=== PATIENT | male | born 1955 | race Caucasian/White ===

== ENCOUNTER 2020-09-28 15:19 | Emergency (ER) | payer BC ==
[~2020-09-28] VITALS: Ht 182.9 cm; Wt 81.6 kg
--- NOTE | 2020-09-28 15:56 | NUR ---
Patient awake alert denies numdness to arms and legs ,no facila drooping no slurred speech swallow eval passed
[2020-09-28] MEDS ORDERED: IV NS 0.9% 1,000 ML BAG IV ONE (16:00)
[2020-09-28] MEDS ORDERED: KETOROLAC TROMETHAMINE INJ 30 MG/ML VIAL IV ONE (16:00)
[2020-09-28] MEDS ORDERED: SUMATRIPTAN SUCCINATE 6 MG/0.5 ML VIAL SQ ONE ×2 (16:00→16:04)
[2020-09-28] MEDS ORDERED: ONDANSETRON HCL/PF 4 MG/2 ML VIAL IVP ONE (16:00)
[2020-09-28] MEDS ORDERED: METOCLOPRAMIDE HCL 10 MG/2 ML VIAL IV ONE (16:00)
[2020-09-28] MEDS ORDERED: METOCLOPRAMIDE HCL 10 MG/2 ML VIAL ONE (16:04)
[2020-09-28] MEDS ORDERED: KETOROLAC TROMETHAMINE 15 MG/ML VIAL ONE (16:04)
[2020-09-28 16:25] LABS: BASOPHILS # (AUTO) 0.1 /CMM (0.0-0.2); BASOPHILS % (AUTO) 0.8 % (0.0-2.0); HEMATOCRIT 44 % (39-51); HEMOGLOBIN 14.6 g/dL (13.5-17.5); LYMPHOCYTES # (AUTO) 1.9 /CMM (0.8-4.8); LYMPHOCYTES % (AUTO) 29.3 % (20.0-44.0); MEAN CORPUSCULAR HGB CONC 33 g/dl (31.0-36.0); MEAN CORPUSCULAR VOLUME 89 fL (80-96); MONOCYTES # (AUTO) 0.6 /CMM (0.1-1.30); NEUTROPHILS % (AUTO) 59.9 % (43.0-81.0); PLATELET COUNT (AUTO) 278 /CMM (150-450); RED BLOOD CELL COUNT(AUTO) 4.92 MIL/uL (4.5-6.0); WHITE BLOOD COUNT (AUTO) 6.6 K/uL (4.3-11.0)
--- NOTE | 2020-09-28 16:28 | NUR ---
TO ct .,lab draw obtained and send to lab .
[2020-09-28 16:37] LABS: CALCIUM, SERUM 9.4 mg/dL (8.5-10.1); CREATININE 0.9 mg/dL (0.6-1.3); POTASSIUM 4.3 mmol/L (3.5-5.1)
--- NOTE | 2020-09-28 17:03 | NUR ---
TEXTED DR. BRIGHT
[2020-09-28] MEDS ORDERED: LEVETIRACETAM (500MG) 500 MG in IV NS 0.9% 100 ML IV SCH (17:30)
--- NOTE | 2020-09-28 17:59 | NUR ---
Patient aware of transfer patient 08/13 nbo nausea and vomiting .
--- NOTE | 2020-09-28 18:04 | NUR ---
Patient awake alert denies sob or numbness good bilateral hand grasp and good pedal pushes noted able to ambulated to bathroom patient aware of transfer .
--- NOTE | 2020-09-28 18:08 | NUR ---
Patient GCS 15 awake alert noted Left pupil 3mm reacted to light and right pupil 2mm reacted to light pain level 5/10 headache
--- NOTE | 2020-09-28 18:24 | NUR ---
covid swab done and sent to the lab
--- NOTE | 2020-09-28 19:17 | NUR ---
LAB CALLED PT COVID RESULT NEGATIVE (-)
--- NOTE | 2020-09-28 19:17 | NUR ---
Report given to Carolyne SCHULZ .awaiting for bed
--- NOTE | 2020-09-28 19:25 | NUR ---
TOOK OVER PT CARE. PT AAOX4. NO NEURO DEFICIT. AWARE OF PLAN OF CARE.
--- NOTE | 2020-09-28 20:25 | NUR ---
TRANSFER INFORMATION: PT ACCEPTED AT [facility] ACCEPTING MD URBINA PHONE# FOR REPORT EXT [phone]
--- NOTE | 2020-09-28 20:33 | NUR ---
[facility] ETA 1 HOUR
--- NOTE | 2020-09-28 21:11 | NUR ---
REPORT GIVEN TO DANIELLE SCHULZ FOR EDUARD
[2020-09-28 21:44] VITALS: BP 148/93
--- NOTE | 2020-09-28 22:07 | NUR ---
[facility] FOR [facility]SP[facility].
--- NOTE | 2020-09-28 22:15 | NUR ---
REPORT GIVEN TO [facility] EMT AND RN. PT TRANSFERED.
== END 2020-09-28 22:20 | disposition short-term general hospital (02) ==
LOC: ER 15:27
DX: I62.01 Nontraumatic acute subdural hemorrhage (principal); R51.9 Headache, unspecified; Z20.822 Contact with and (suspected) exposure to COVID-19
CPT/HCPCS: 36415; 70450; 80048; 85025; 87426; 96365; 96372; 96375; 99291; 99292; C9803; J1885; J1953; J2765; J3030; J7030 ×2

== ENCOUNTER 2020-10-22 10:44 | Inpatient (IN) | payer BC ==
[~2020-10-22] VITALS: Ht 182.9 cm; Wt 77.1 kg
--- NOTE | 2020-10-22 10:50 | NUR ---
bib friend, pt is c/o dizziness started 1 hour ago. Patient a/ox3, breathing even and unlabored, verbally responsive, answer questions with delayed response. Patient noted to be tachycardic on the monitor.
[2020-10-22] MEDS ORDERED: DIAZEPAM 5 MG TABLET ONE (10:56)
[2020-10-22] MEDS ORDERED: MECLIZINE HCL 12.5 MG TABLET ONE (10:59)
[2020-10-22] MEDS ORDERED: MECLIZINE HCL 12.5 MG TABLET PO ONE (11:00)
[2020-10-22] MEDS ORDERED: IV NS 0.9% 500 ML BAG IV ONE ×2 (11:00→12:00)
[2020-10-22] MEDS ORDERED: AMLO-213 PO (11:13)
[2020-10-22] MEDS ORDERED: LEVE500T20 PO (11:13)
[2020-10-22] MEDS ORDERED: ATOR40TA PO (11:13)
[2020-10-22] MEDS ORDERED: HYDR-4076 PO (11:13)
[2020-10-22] MEDS ORDERED: DOCU100C36 PO (11:13)
[2020-10-22 11:23] LABS: BASOPHILS # (AUTO) 0.1 /CMM (0.0-0.2); BASOPHILS % (AUTO) 0.8 % (0.0-2.0); EOSINOPHILS % (AUTO) 1.1 % (0.0-6.0); HEMATOCRIT 46 % (39-51); HEMOGLOBIN 14.7 g/dL (13.5-17.5); LYMPHOCYTES # (AUTO) 4.7 /CMM (0.8-4.8); LYMPHOCYTES % (AUTO) 42.3 % (20.0-44.0); MEAN CORPUSCULAR HGB CONC 32 g/dl (31.0-36.0); MEAN CORPUSCULAR VOLUME 91 fL (80-96); MONOCYTES # (AUTO) 0.9 /CMM (0.1-1.30); MONOCYTES % (AUTO) 7.9 % (2.0-12.0); NEUTROPHILS # (AUTO) 5.3 /CMM (1.8-8.9); NEUTROPHILS % (AUTO) 47.9 % (43.0-81.0); PLATELET COUNT (AUTO) 412 /CMM (150-450); RED BLOOD CELL COUNT(AUTO) 5.04 MIL/uL (4.5-6.0); WHITE BLOOD COUNT (AUTO) 11.1 K/uL (4.3-11.0)
--- NOTE | 2020-10-22 11:23 | NUR ---
DR. BUTLER GAVE VERBAL ORDER FOR VALIUM. REMOVED VALIUM FROM OMNICELL, THEN DR. BUTLER GAVE INSTRUCTION TO HOLD THE VALIUM AT THIS TIME.
[2020-10-22 11:31] LABS: CALCIUM, SERUM 9.9 mg/dL (8.5-10.1); CARBON DIOXIDE 14 mmol/L (21-32); CHLORIDE 100 mmol/L (98-107); CREATININE 1.4 mg/dL (0.6-1.3); GLUCOSE 170 mg/dL (74-106); POTASSIUM 3.1 mmol/L (3.5-5.1); SODIUM SERUM 141 mmol/L (136-145); UREA NITROGEN, BLOOD 15 mg/dL (7-18)
--- NOTE | 2020-10-22 11:36 | NUR ---
COVID SWAB SENT.
[2020-10-22 11:37] LABS: ALANINE AMINOTRANSFERASE 27 U/L (12-78); ALBUMIN 4.3 g/dL (3.4-5.0); ALKALINE PHOSPHATASE 102 U/L (46-116); ASPARTATE AMINOTRANSFERASE 21 U/L (15-37); BILIRUBIN,DIRECT 0.3 mg/dL (0.0-0.2); BILIRUBIN,TOTAL 1.2 mg/dL (0.2-1.0); TOTAL PROTEIN, SERUM 9.1 g/dL (6.4-8.2)
[2020-10-22] MEDS ORDERED: LORAZEPAM INJ 2 MG/ML VIAL ONE (12:09)
--- NOTE | 2020-10-22 12:11 | NUR ---
PATIENT HAD AN EPISODE OF TONIC CLONIC SEIZURE X [address] BUTLER MADE AWARE. SEIZURE PRECAUTION OBSERVED.
[2020-10-22] MEDS ORDERED: LORAZEPAM INJ 2 MG/ML VIAL IV ONE (12:30)
[2020-10-22] MEDS ORDERED: LEVETIRACETAM (500MG) 1,000 MG in IV NS 0.9% 100 ML IV SCH (12:30)
--- NOTE | 2020-10-22 13:05 | NUR ---
BED ASSIGNED= 307-1
--- NOTE | 2020-10-22 13:09 | NUR ---
PATIENT ASLEEP AT THIS TIME. VSS. NO DISTRESS NOTED.
--- NOTE | 2020-10-22 13:26 | NUR ---
REPORT GIVEN TO MICHELL SCHULZ FOR EDUARD.
[2020-10-22] MEDS ORDERED: ZOLPIDEM TARTRATE 5 MG TABLET PO PRN (13:30)
[2020-10-22] MEDS ORDERED: MAG HYDROX/AL HYDROX/SIMETH 30 ML UDC PO PRN (13:30)
[2020-10-22] MEDS ORDERED: IV NS 0.9% 1,000 ML IV SCH (13:30)
[2020-10-22] MEDS ORDERED: HYDROCODONE/APAP 5/325MG TABLET PO PRN (13:30)
[2020-10-22] MEDS ORDERED: ONDANSETRON HCL/PF 4 MG/2 ML VIAL IVP PRN (13:30)
[2020-10-22] MEDS ORDERED: MAGNESIUM HYDROXIDE 30 ML UDC PO PRN (13:30)
[2020-10-22] MEDS ORDERED: Z GUARD REMEDY 2 OZ OINT TP PRN (13:30)
[2020-10-22] MEDS ORDERED: ACETAMINOPHEN 325 MG TABLET PO PRN (13:30)
[2020-10-22] MEDS ORDERED: hydrALAZINE HCL 25 MG TABLET PO PRN (13:30)
--- NOTE | 2020-10-22 13:45 | NUR ---
PATIENT ADMITTED FROM ER REPORTED BY LULÚ SCHULZ. ADMITTING DX IS SEIZURE, STABLE VITAL SIGN, SKIN IS WARM TO TOUCH, KEEP CLEAN/BRITTANY. CALL LIGHT WITHIN REACH, WILL CONTINUE TO MONITOR.
--- NOTE | 2020-10-22 13:51 | NUR ---
PATIENT TRANSFERRED TO ROOM 307-1 VIA ACLS PROTOCOL. NO DISTRESS NOTED. IN STABLE CONDITION, PATIENT IS MORE AWAKE. ENDORSED TO JENNY SCHULZ.
--- NOTE | 2020-10-22 15:00 | NUR ---
PATIENT NOTICED LACTIC ACID 5.1 AND POTASSIUM 3.1, INFORMED MD.
--- NOTE | 2020-10-22 15:00 | NUR ---
3 business trainer picked up patient, and given report. Patient medically stable condition.
[2020-10-22 16:00] VITALS: BP 133/79
[2020-10-22] MEDS ORDERED: DOCUSATE SODIUM 100 MG CAPSULE PO SCH (17:00)
--- NOTE | 2020-10-22 17:08 | NUR ---
PATIENT NOTED URINARY RETENTION 1,000 CC IN BLADDER AND OUT 1,000 CC APPROXIMATELY. PATIENT MENTIONED PATIENT USE COUDE CATHETER EVERY 6 HOURS AT HOME. PAGED BUT NO RESPONSE AT THIS TIME. LABORATORY CALLED REGARDING 2ND LACTIC ACID LEVEL IS 1.1, AND WILL CANCELL 3RD OF LACTIC ACID LAB. Addendum: 10/22/20 at 1726 by NOEMI ELAINE RN PAGED DR. HUERTA AND CALLED BACK. INFORMED OF PATIENT'S HISTORY OF SELF-CATHETERIZATION USING COUDE CATHETER AND BLADDER SCAN RESULT OF >999CC W/ RECOMMENDATION TO DO STRAIGHT CATHETERIZATION. PER MD, OKAY TO DO STRAIGHT CATHETERIZATION TO BE PERFORMED BY NURSE BUT OKAY FOR PATIENT TO DO IT WELL LONG PATIENT IS SUPERVISED. PATIENT ASSISTED W/ CATHETERIZATION IN THE BATHROOM USING FR 18 COUDE CATHETER W/ OUTPUT OF APPROXIMATELY 1000CC. PATIENT VERBALIZED BLADDER RELIEF AFTER PROCEDURE. NOTED W/ YELLOW-COLORED URINE OUTPUT.
--- NOTE | 2020-10-22 18:40 | NUR ---
RN CLOSING NOTE PATIENT IN BED RESTING, REMAINS AO X 3. SKIN IS WARM TO TOUCH, KEEP CLEAN/DRY, INTACT IV SITE, RUNNING NS AT 100 ML/HR CURRENTLY. RESPIRATORY EVEN AND UNLABORED ON ROOM AIR O2SAT 94%. KEPT ELEVATED HOB FOR ENSURE AIRWAY AND ASPIRATION PRECAUTION, ALSO LOWEST BED POSITION FOR SAFETY. CALL LIGHT WITHIN REACH, WILL ENDORSE STONE BELT SANDER.
--- NOTE | 2020-10-22 19:30 | NUR ---
DRAFTER CARTOGRAPHIC NOTES RECEIVED ON BED SLEEPING,AROUSABLE TO VERBAL STIMULI,BREATHING REGULAR,NOT IN ANY FORM OF DISTRESS,PRESENT IVF INFUSING WELL VIA IV PUMP ON RIGHT WRIST,SITE PATENT.SIDE RAILS PADDED FOR SEIZURE PRECAUTION.FALL PRECAUTION OBSERVED,BED ON LOWEST POSITION AND LOCKED,BED ALARM TRIGGERED.CALL LIGHT IN TREACH,NEEDS ANTICIPATED.
--- NOTE | 2020-10-22 19:30 | NUR ---
RN OPENING NOTES: RECEIVED RESIDENT SLEEP BED COMFORTABLY,AROUSABLE TO STIMULI, BED IN LOW POSITION, CALL LIGHTS WITHIN REACH, NO COMPLAIN OF PAIN AND DISCOMFORT, RESIDENT IS MONITORED FOR SEIZURE, NPO AT THIS TIME, ON TELE MONITORING WITH READING OF SINUS RTHYM HR AT 82,NO COMPLAIN OF PAIN AND DISCOMFORT AT THIS TIME WILL CONTINUE TO MONITOR.
[2020-10-22 20:00] VITALS: BP 130/77
[2020-10-22 20:17] VITALS: BP 130/77
--- NOTE | 2020-10-22 20:45 | NUR ---
SENIOR SALESFORCE DEVELOPER NOTES NOTED PATIENT ON NPO STATUS,WITH KEPPRA 500MG PO Q 12,HOSPITALIST MARLYS HAMILTON MADE AWARE,WITH ORDER TO CHANGE IT TO IV 500MG IV Q 12,NOTED AND CARRIED OUT.
[2020-10-22] MEDS ORDERED: LEVETIRACETAM (250 MG) 250 MG TABLET PO SCH (21:00)
[2020-10-22] MEDS ORDERED: LEVETIRACETAM (500MG) 500 MG in IV NS 0.9% 100 ML IV SCH (21:00)
--- NOTE | 2020-10-22 21:00 | NUR ---
WOOD MACHINE CARVER NOTES SR 81 ON TELE MONITOR
--- NOTE | 2020-10-22 21:11 | NUR ---
WINDER FIXER NOTES STARTED ON KEPPRA 500MG IV ORDERED. WILL MONITOR FOR SEIZURE ACTIVITY
[2020-10-22] MEDS ORDERED: ATORVASTATIN 40 MG TABLET PO SCH (22:00)
--- NOTE | 2020-10-22 22:00 | NUR ---
DIAMOND SETTER NOTES AWAKE THIS TIME ASKING FOR DRINKING WATER.HE WAS INFORMED THAT HE WAS PUT ON NOTHING BY MOUTH BY ADMITTING DOCTOR,FEELING UPSET AND INSISTING TO HAVE WATER.ALSO ASKING FOR HIS IPOD ,MONEY, AND CELLPHONE.BELONGING LIST WAS CHECK AND NOTHING WAS DECLARED,VERIFIED WITH JUSTINA HAN NURSE AND SAID NOTHING WAS KEPT IN THEIR DEPARTMENT. PATIENT DECIDED TO TO GO HOME AGAINST MEDICAL ADVICE.
--- NOTE | 2020-10-22 23:15 | NUR ---
TRAFFIC RECORDER NOTES: PATIENT WAS IN ROOM AWAKE AND ASKING FOR WATER, INFORM PATIENT THAT HE WAS ON NPO, AT THIS TIME PER DOCTORS ORDER AND WILL REACH OUT TO THE DOCTOR TO SEE IF HE CAN HAVE A SIP OF WATER OR ICE CHIPS, PATIENT WAS UPSET TOO BECAUSE HE WAS LOOKING FOR HIS PHONE AND IPOD EXPLAIN TO HIM THAT SAID ITEM WAS NOT PART OF THE INVENTORY LIST AND HE INSIST THAT ITS MISSING HE SAID THAT IT WAS THE SAMEEXCUSE YEARDAY AND THAT WE STOLE IT, HE SAID THAT IT WAS WITH THE PERSON WHO BROUGHT HIM TO ER WE ASKED HIM THE NUMBER BUT HE COULDNT RECALL SAYING THAT HOW CAN IREMEMBER IT WHEN HE HAD A RECENT SURGERY, NO ANY CONTACT NUMBER TO NEAREST KIN ON PATIENT CHART AND HE COULDNT REMEMBER ANY EITHER, PATIENT WASNTS TO GO AMA, NOTIFY CHARGE NURSE AND SPOKE AND EXPLAIN TO DR SANTOS, DR PACHECO CAME TO TALK TO HIM AND TRY TO CONVINCE HIM THAT HE CAN STAY HERE, AND AND WE CAN ARRANGE WITH THE SUPERINTENDENT TERMINAL ON HOW TO REACH OUT WITH THE FAMILY, THE PATIENT WANTED TO LEAVE, HE WAS ALERT AND ORIENTED X 4, KNOW HIS ADDRESS, EXPLAINED THE RISK OF LEAVING SPECIALLY HE HAS HISTORY OF SEIZURE BUT HE INSIST, SIGNED AMA FORM REMOVED BAND AND ESCORT THE PATIENT TO ER, AND SEND HIM TOER SINCE HE WANTS TO TALK TO ER STAFF ABOUT THE INFORMATION AND HIS GADGET WHICH ACCORDING TO HIM WAS WITH HIM.
[2020-10-23] MEDS ORDERED: AMLODIPINE BESYLATE 10 MG TABLET PO SCH (09:00)
== END 2020-10-22 23:00 | disposition left against medical advice (07) | DRG 100 ==
LOC: ER 10:44 → TELE 13:07
PROVIDERS: ADMIT Family Medicine; ATTEND Family Medicine
DX: R56.9 Unspecified convulsions (principal); N17.0 Acute kidney failure with tubular necrosis; E87.2 Acidosis; Z79.899 Other long term (current) drug therapy; Z86.73 Personal history of transient ischemic attack (TIA), and cerebral infarction without residual deficits; D72.829 Elevated white blood cell count, unspecified; E78.5 Hyperlipidemia, unspecified; I10 Essential (primary) hypertension; E87.6 Hypokalemia; R73.9 Hyperglycemia, unspecified; E80.6 Other disorders of bilirubin metabolism; N40.0 Benign prostatic hyperplasia without lower urinary tract symptoms; T42.75XA Adverse effect of unspecified antiepileptic and sedative-hypnotic drugs, initial encounter; Y92.9 Unspecified place or not applicable; Z98.890 Other specified postprocedural states
CPT/HCPCS: 36415; 70450-TC; 80048-TC; 80076-TC; 82010-TC; 82962-TC; 83605-TC; 84484-TC; 85025-TC; 85730-TC; C9803; G0378; G0480; J1953; J2060; J7030; J7040; J8597